=== PATIENT | female | born 2000 | race American Indian/Alaskan Native ===

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

== ENCOUNTER 2021-01-05 21:41 | Emergency (ER) | payer MEDICAID ==
[2021-01-05] MEDS ORDERED: SODIUM CHLORIDE 0.9% 1000 ML 1,000 ML IV ONE (22:47)
[2021-01-05] MEDS ORDERED: ACETAMINOPHEN 500 MG TAB PO ONE (22:47)
[2021-01-05] MEDS ORDERED: IBUPROFEN 600 MG TAB PO ONE (22:47)
[2021-01-05] MEDS ORDERED: ONDANSETRON 4 MG/2 ML INJ IV ONE (22:47)
[2021-01-05] MEDS ORDERED: LIDOCAINE VISCOUS 2% 15 ML ORAL LIQD PO ONE (22:48)
[2021-01-05] MEDS ORDERED: dexAMETHasone 20 MG/5 ML VIAL IV ONE (22:48)
[2021-01-05 23:20] LABS: Basophils # (Auto) 0.1 K/mm3 (0.0-0.1); Basophils % (Auto) 0.5 % (0.0-1.8); Hematocrit 42.2 % (30.3-42.9); Hemoglobin 13.8 gm/dl (10.1-14.3); Lymphocytes # (Auto) 1.2 K/mm3 (1.2-5.4); Lymphocytes % (Auto) 9.2 % (13.4-35.0); Mean Corpuscular HGB Conc 33 % (30-34); Mean Corpuscular Volume 87 fl (79-97); Monocytes % (Auto) 7.5 % (0.0-7.3); Platelet Count 342 K/mm3 (140-440); Red Blood Count 4.85 M/mm3 (3.65-5.03); Red Cell Distribution Width 13.9 % (13.2-15.2)
[2021-01-05 23:40] LABS: Alanine Aminotransferase 12 units/L (7-56); Albumin 4.3 g/dL (3.9-5); BUN/Creatinine Ratio 8; Blood Urea Nitrogen 6 mg/dL (7-17); Calcium 9.7 mg/dL (8.4-10.2); Hemolysis Index 2
[2021-01-06 00:27] LABS: Bilirubin,Urine NEG (Negative); Blood,Urine SM (Negative); Color,Urine Yellow (Yellow); Mucus,Urine 1+ /HPF
[2021-01-06] MEDS ORDERED: cefTRIAXone/NS 1 GM/50 ML 1 GM/50 ML BAG IV ONE (00:46)
--- NOTE | 2021-01-06 01:38 | XRay Report ---
XR chest routine 2V INDICATION / CLINICAL INFORMATION: fever. COMPARISON: None available. FINDINGS: SUPPORT DEVICES: None. HEART /PULMONARY VASCULATURE: No significant abnormality. LUNGS / PLEURA: No significant pulmonary or pleural abnormality. No pneumothorax. ADDITIONAL FINDINGS: No significant additional findings. IMPRESSION: 1. No acute findings. Signer Name: Joselito Proctor MD Signed: 01/06/2021 1:33 AM Workstation Name: [id number]
--- NOTE | 2021-01-06 01:45 | Emergency Department Report ---
ED General Adult HPI - General Chief complaint: Fever Stated complaint: FATIGUE, BODY ACHE SORE THROAT Source: patient Mode of arrival: Ambulatory Limitations: No Limitations - History of Present Illness Initial comments: Patient is a nulliparous 20-year-old -[place] female with no past medical history who presents to the ED with complaint of acute onset persistent severe diffuse body aches and pains, intermittent fever of up to 103 F and chills, severe sore throat with dysphagia and headache for the last 2 days. Patient states that she has not been able to swallow or drink anything because of worsening sore throat especially in the last 12 hours. Patient states that no one else at home has had similar symptoms. Patient denies dizziness, syncope, chest pain, shortness of breath, cough, dysuria, urinary frequency and urgency, nausea, vomiting, diarrhea, abdominal pain, neck pain, change in vision, seizures or hemoptysis. MD Complaint: Sore throat, fever, body aches and pains and headache -: Sudden, days(s) (2) Location: head, mouth Radiation: non-radiation Severity scale (0 -10): 7 Quality: aching, sharp Consistency: constant Improves with: none Worsens with: none Associated Symptoms: denies other symptoms, fever/chills, headaches, loss of appetite, malaise. denies: confusion, chest pain, cough, diaphoresis, nausea/vomiting, rash, seizure, shortness of breath, syncope, weakness, other Treatments Prior to Arrival: none - Related Data Previous Rx's Medication Instructions Recorded Last Taken Type Ibuprofen [Motrin] 600 mg PO Q8H PRN #30 tablet 12/14/20 Unknown Rx Amoxicillin/K Clav Tab [Augmentin 1 tab PO Q12HR #20 tab 01/06/21 Unknown Rx 875MG TAB] Ibuprofen [Motrin] 600 mg PO Q8H PRN #30 tablet 01/06/21 Unknown Rx Lidocaine Viscous 2% 15 ml MM Q6H PRN #120 ml 01/06/21 Unknown Rx Ondansetron [Zofran Odt] 4 mg PO Q6HR PRN #15 tab.rapdis 01/06/21 Unknown Rx predniSONE [Deltasone] 40 mg PO QDAY #10 tab 01/06/21 Unknown Rx Allergies Allergy/AdvReac Type Severity Reaction Status Date / Time No Known Allergies Allergy Verified 12/14/20 00:00 ED Review of Systems ROS: Stated complaint: FATIGUE, BODY ACHE SORE THROAT Other details as noted in HPI Constitutional: chills, fever, malaise Eyes: denies: eye pain, eye discharge, vision change ENT: throat pain. denies: ear pain, dental pain, hearing loss, congestion Respiratory: denies: cough, shortness of breath, wheezing Cardiovascular: denies: chest pain, palpitations Endocrine: no symptoms reported Gastrointestinal: denies: abdominal pain, nausea, diarrhea Genitourinary: denies: urgency, dysuria, discharge Musculoskeletal: arthralgia, myalgia. denies: back pain, joint swelling Skin: denies: rash, lesions Neurological: headache. denies: weakness, paresthesias Psychiatric: denies: anxiety, depression Hematological/Lymphatic: denies: easy bleeding, easy bruising ED Past Medical Hx - Past Medical History Previous Medical History?: No - Surgical History Past Surgical History?: No - Social History Smoking Status: Never Smoker Substance Use Type: None - Medications Home Medications: Home Medications Medication Instructions Recorded Confirmed Last Taken Type Ibuprofen [Motrin] 600 mg PO Q8H PRN #30 tablet 12/14/20 Unknown Rx Amoxicillin/K Clav Tab [Augmentin 1 tab PO Q12HR #20 tab 01/06/21 Unknown Rx 875MG TAB] Ibuprofen [Motrin] 600 mg PO Q8H PRN #30 tablet 01/06/21 Unknown Rx Lidocaine Viscous 2% 15 ml MM Q6H PRN #120 ml 01/06/21 Unknown Rx Ondansetron [Zofran Odt] 4 mg PO Q6HR PRN #15 tab.rapdis 01/06/21 Unknown Rx predniSONE [Deltasone] 40 mg PO QDAY #10 tab 01/06/21 Unknown Rx ED Physical Exam - General Limitations: No Limitations General appearance: alert, in no apparent distress - Head Head exam: Present: atraumatic, normocephalic, normal inspection - Eye Eye exam: Present: normal appearance, PERRL, EOMI Pupils: Present: normal accommodation - ENT ENT exam: Present: mucous membranes moist, TM's normal bilaterally, normal external ear exam, other (Erythematous oropharynx with erythematous swollen right tonsil with thick yellowish purulent exudate) - Neck Neck exam: Present: normal inspection, full ROM, lymphadenopathy (bilateral anterior cervical lymphadenopathy). Absent: tenderness - Respiratory Respiratory exam: Present: normal lung sounds bilaterally. Absent: respiratory distress, wheezes, rales, rhonchi, chest wall tenderness, accessory muscle use, decreased breath sounds, prolonged expiratory - Cardiovascular Cardiovascular Exam: Present: normal rhythm, tachycardia, normal heart sounds. Absent: systolic murmur, diastolic murmur, rubs, gallop - GI/Abdominal GI/Abdominal exam: Present: soft, normal bowel sounds. Absent: tenderness, guarding, rebound, hyperactive bowel sounds, hypoactive bowel sounds, organomegaly - Extremities Exam Extremities exam: Present: normal inspection, full ROM, normal capillary refill - Back Exam Back exam: Present: normal inspection, full ROM. Absent: tenderness, CVA tenderness (R), CVA tenderness (L), muscle spasm, paraspinal tenderness, verte bral tenderness - Neurological Exam Neurological exam: Present: alert, oriented X3, CN II-XII intact, normal gait, reflexes normal - Psychiatric Psychiatric exam: Present: normal affect, normal mood - Skin Skin exam: Present: warm, dry, intact, normal color. Absent: rash ED Course Vital Signs 01/05/21 01/06/21 22:34 02:55 Temperature 103 F H 98.1 F Pulse Rate 143 H 99 H Respiratory 18 16 Rate Blood Pressure 127/86 Blood Pressure 111/67 [Right] O2 Sat by Pulse 98 99 Oximetry ED Medical Decision Making - Lab Data Result diagrams: 01/05/21 22:59 01/05/21 22:59 - Radiology Data Radiology results: report reviewed, image reviewed [address] [address] XRay Report Signed Patient: WINSTON NOBLES MR#: [id number] : 2000 Acct:[id number] Age/Sex: 20 / F ADM Date: 01/05/21 Loc: ED Attending Dr: Ordering Physician: LUPE HOFF Date of Service: 01/06/21 Procedure(s): XR chest routine 2V Accession Number(s): [id number] cc: LUPE HOFF Fluoro Time In Minutes: XR chest routine 2V INDICATION / CLINICAL INFORMATION: fever. COMPARISON: None available. FINDINGS: SUPPORT DEVICES: None. HEART /PULMONARY VASCULATURE: No significant abnormality. LUNGS / PLEURA: No significant pulmonary or pleural abnormality. No pneumothorax. ADDITIONAL FINDINGS: No significant additional findings. IMPRESSION: 1. No acute findings. Signer Name: Nathan Shoemaker MD Signed: 01/06/2021 1:33 AM Workstation Name: [id number] Transcribed By: CINDY Dictated By: NATHAN SHOEMAKER MD Electronically Authenticated By: NATHAN SHOEMAKER MD Signed Date/Time: 01/06/21132 DD/ 2 TD/TT: - Medical Decision Making This is a nulliparous 20-year-old -[place] female with no past medical history who presents to the ED with complaint of acute onset persistent severe diffuse body aches and pains, intermittent fever of up to 103 F and chills, severe sore throat with dysphagia and headache for the last 2 days. Patient states that she has not been able to swallow or drink anything because of worsening sore throat especially in the last 12 hours. Patient states that no one else at home has had similar symptoms. In the ED, patient is alert and oriented x3 and is not in any distress. Patient is anxious, febrile with a fever of 103 F and is tachycardic with a heart rate of 143 bpm in triage but the oxygen saturation is 98% in room air. Patient was treated for fever in the ED, also given Decadron 10 mg IV x1, normal saline 1 L IV bolus x1. Lab test results were reviewed and showed acute leukocytosis of 12,700, mild hyponatremia of 132 mmol/L, and acute hyperglycemia of 127 mg/dL. Urinalysis showed some white blood cells in the urine with significant budding yeasts and epithelial cells, but no bacteriuria. Rapid strep and mono test were negative. Patient was empirically treated in the ED with Rocephin 1 g IV x1. On reevaluation, patient's fever resolved with medication, patient pain also resolved and patient felt better. Tachycardia also resolved and patient will discharge home on medications and advised to follow-up with her primary care physician in 5 to 7 days for reevaluation. Patient is advised return to the ED immediately if symptoms get worse. - Differential Diagnosis Strep pharyngitis; bacterial tonsillitis; mononucleosis; URI; pneumonia; Critical care attestation.: If time is entered above; I have spent that time in minutes in the direct care of this critically ill patient, excluding procedure time. ED Disposition Clinical Impression: Acute bacterial tonsillitis, Acute streptococcal pharyngitis, Fever and chills Disposition: 01 HOME / SELF CARE / HOMELESS Is pt being admited?: No Does the pt Need Aspirin: No Condition: Stable Instructions: Tonsillitis, [id number], Strep Throat, Adult, [id number], Upper Respiratory Infection, Adult, [id number], Pharyngitis, [id number], Fever, Adult, [id number] Additional Instructions: All lab test results were reviewed and are all nonactionable including rapid strep and rapid Monospot test. Chest x-ray showed no acute cardiopulmonary abnormalities or pneumonitis. Although the initial rapid strep test was negative, given your symptoms and clinical findings, your symptoms are likely streptococcal or other bacterial tonsillitis or pharyngitis whose treatment is the same. In addition, the rapid strep test is usually not very sensitive, but the throat culture for strep is most sensitive and that test results is pending. Therefore take medications with food, drink plenty of fluids, follow-up with your primary care physician in 5 to 7 days for reevaluation. Return to the ED immediately if symptoms get worse Prescriptions: Amoxicillin/K Clav Tab [Augmentin 875MG TAB] 1 tab PO Q12HR #20 tab predniSONE [Deltasone] 40 mg PO QDAY #10 tab Lidocaine Viscous 2% 15 ml MM Q6H PRN #120 ml PRN Reason: Sore Throat Ibuprofen [Motrin] 600 mg PO Q8H PRN #30 tablet PRN Reason: Pain and fever Ondansetron [Zofran Odt] 4 mg PO Q6HR PRN #15 tab.rapdis PRN Reason: Nausea Referrals: [facility] [Provider Group] - 7-10 days Forms: Work/School Release Form(ED) Time of Disposition: 01:52 Print Language: TONGAN
[2021-01-06 02:57] VITALS: BP 111/67
== END 2021-01-06 02:43 | disposition home or self-care (01) ==
LOC: ED 21:41
DX: J02.0 Streptococcal pharyngitis (principal); R50.9 Fever, unspecified
CPT/HCPCS: 36415; 71046; 80053; 81001; 84703; 85025; 86308; 87086; 87116; 87430; 96361; 96374; 96375; 99284; J0696; J1100; J2405; J7030; Q0162

== ENCOUNTER 2021-04-06 09:43 | Emergency (ER) | payer MEDICAID ==
[2021-04-06 09:52] VITALS: BP 118/67
--- NOTE | 2021-04-06 12:32 | Emergency Department Report ---
- General Chief complaint: Skin/Abscess/Foreign Body Stated complaint: SPOT ON RT LEG Time Seen by Provider: 04/06/21 11:31 Source: patient Mode of arrival: Ambulatory Limitations: No Limitations - History of Present Illness Initial comments: 20-year-old -Japanese female presents to the emergency room complaining of a boil to her right inguinal area times a few days. Patient states she has a history of these. States that it is painful when she walks. Eyes any drainage. Admits that she shaves in her private area. MD complaint: abscess/boil Onset/Timin -: days(s) Tetanus Up to Date: yes Location: genitals Severity scale (0 -10): 7 Quality: other (Throbbing) Consistency: intermittent Improves with: none Worsens with: movement Context: other (Shaving) Associated symptoms: denies other symptoms Treatments Prior to Arrival: none - Related Data Previous Rx's Medication Instructions Recorded Last Taken Type Ibuprofen [Motrin] 600 mg PO Q8H PRN #30 tablet 12/14/20 Unknown Rx Amoxicillin/K Clav Tab [Augmentin 1 tab PO Q12HR #20 tab 01/06/21 Unknown Rx 875MG TAB] Lidocaine Viscous 2% 15 ml MM Q6H PRN #120 ml 01/06/21 Unknown Rx Ondansetron [Zofran Odt] 4 mg PO Q6HR PRN #15 tab.rapdis 01/06/21 Unknown Rx predniSONE [Deltasone] 40 mg PO QDAY #10 tab 01/06/21 Unknown Rx Ibuprofen [Motrin 600 MG tab] 600 mg PO Q8H PRN #30 tablet 04/06/21 Unknown Rx Mupirocin [Bactroban 2%] 1 applic TP TID #1 tube 04/06/21 Unknown Rx Allergies Allergy/AdvReac Type Severity Reaction Status Date / Time No Known Allergies Allergy Verified 12/14/20 00:00 Abscess Boil HPI - HPI Chief Complaint: Skin/Abscess/Foreign Body Stated Complaint: SPOT ON RT LEG Time Seen by Provider: 04/06/21 11:31 Home Medications: Previous Rx's Medication Instructions Recorded Last Taken Type Ibuprofen [Motrin] 600 mg PO Q8H PRN #30 tablet 12/14/20 Unknown Rx Amoxicillin/K Clav Tab [Augmentin 1 tab PO Q12HR #20 tab 01/06/21 Unknown Rx 875MG TAB] Lidocaine Viscous 2% 15 ml MM Q6H PRN #120 ml 01/06/21 Unknown Rx Ondansetron [Zofran Odt] 4 mg PO Q6HR PRN #15 tab.rapdis 01/06/21 Unknown Rx predniSONE [Deltasone] 40 mg PO QDAY #10 tab 01/06/21 Unknown Rx Ibuprofen [Motrin 600 MG tab] 600 mg PO Q8H PRN #30 tablet 04/06/21 Unknown Rx Mupirocin [Bactroban 2%] 1 applic TP TID #1 tube 04/06/21 Unknown Rx Allergies/Adverse Reactions: Allergies Allergy/AdvReac Type Severity Reaction Status Date / Time No Known Allergies Allergy Verified 12/14/20 00:00 ED Review of Systems ROS: Stated complaint: SPOT ON RT LEG Other details as noted in HPI Comment: All other systems reviewed and negative ED Past Medical Hx - Social History Smoking Status: Never Smoker Substance Use Type: None - Medications Home Medications: Home Medications Medication Instructions Recorded Confirmed Last Taken Type Ibuprofen [Motrin] 600 mg PO Q8H PRN #30 tablet 12/14/20 Unknown Rx Amoxicillin/K Clav Tab [Augmentin 1 tab PO Q12HR #20 tab 01/06/21 Unknown Rx 875MG TAB] Lidocaine Viscous 2% 15 ml MM Q6H PRN #120 ml 01/06/21 Unknown Rx Ondansetron [Zofran Odt] 4 mg PO Q6HR PRN #15 tab.rapdis 01/06/21 Unknown Rx predniSONE [Deltasone] 40 mg PO QDAY #10 tab 01/06/21 Unknown Rx Ibuprofen [Motrin 600 MG tab] 600 mg PO Q8H PRN #30 tablet 04/06/21 Unknown Rx Mupirocin [Bactroban 2%] 1 applic TP TID #1 tube 04/06/21 Unknown Rx ED Physical Exam - General Limitations: No Limitations General appearance: alert, in no apparent distress - Head Head exam: Present: atraumatic, normocephalic - Eye Eye exam: Present: normal appearance - ENT ENT exam: Present: mucous membranes moist - Neck Neck exam: Present: full ROM - Respiratory Respiratory exam: Absent: respiratory distress, accessory muscle use - Cardiovascular Cardiovascular Exam: Absent: normal rhythm - GI/Abdominal GI/Abdominal exam: Present: normal bowel sounds - External exam: Absent: erythema, swelling, lesions - Extremities Exam Extremities exam: Present: normal inspection, full ROM - Back Exam Back exam: Present: normal inspection, full ROM - Neurological Exam Neurological exam: Present: alert, oriented X3, normal gait - Psychiatric Psychiatric exam: Present: normal affect, normal mood - Skin Skin exam: Present: warm, dry, intact, normal color. Absent: rash ED Course Vital Signs 04/06/21 09:51 Temperature 98.2 F Pulse Rate 79 Respiratory 18 Rate Blood Pressure 118/67 [Right] O2 Sat by Pulse 100 Oximetry Critical care attestation.: If time is entered above; I have spent that time in minutes in the direct care of this critically ill patient, excluding procedure time. ED Disposition Clinical Impression: Boil of inguinal region Disposition: 01 HOME / SELF CARE / HOMELESS Is pt being admited?: No Does the pt Need Aspirin: No Condition: Stable Additional Instructions: Keep area clean and dry. Avoid shaving as that causes hair bumps which can then become infected. Use warm compress use antibiotic ointment as prescribed. Tylenol ibuprofen for pain management. Prescriptions: Mupirocin [Bactroban 2%] 1 applic TP TID #1 tube Ibuprofen [Motrin 600 MG tab] 600 mg PO Q8H PRN #30 tablet PRN Reason: Pain and fever Referrals: ROXANA TERRY MD [Staff Physician] - 3-5 Days Forms: Work/School Release Form(ED) Time of Disposition: 12:20
== END 2021-04-06 12:25 | disposition home or self-care (01) ==
LOC: ED 09:43
DX: L02.224 Furuncle of groin (principal)
CPT/HCPCS: 99282